=== PATIENT | female | born 1950 | race Caucasian/White ===

== ENCOUNTER 2018-10-04 09:23 | Day surgery (SDC) | payer MEDICARE, BC ==
[~2018-10-04] VITALS: Ht 167.6 cm; Wt 85.5 kg
[~2018-10-04 09:23] MED LIST: ASCO500 PO; ASPI81CH PO; CHOL10002 PO; Calicum 500+D1 EACH PO; Fish Oil300 MG PO; HYDR1TAB94; LISI20 PO; Multivitamin1 EAC1 PO; PRAV20 PO; ROSU5 PO
[2018-10-04] MEDS ORDERED: ROSU5 PO (10:22)
[2018-10-04] MEDS ORDERED: VITAMIN B12-FO1 EACH PO (10:25)
[2018-10-04] MEDS ORDERED: AMLO5 PO (10:26)
--- NOTE | 2018-10-04 17:00 | NUR ---
DISCHARGE PT REMAINED A&OX3 AND DENIED ANY PAIN DURING RECOVERY. PT AMBULATED TO RESTROOM AND DRESSED SELF INDEPENDANLTY. IV DC'D WITH CANULA IN TACT. R RADIAL SITE-TR BAND REMOVED-CLOTH DOT AND WHITE BOARD SECURE-CDI NO HEMATOMA NOTED. DISCHARGE PAPERWORK GONE OVER WITH PT AND SPOUSE. PT AND SPOUSE DENIED ANY QUESTIONS ON THE DISCHARGE EDUCATION GIVEN AT THIS TIME. PT WHEELED OUT BY THIS NURSE.
== END 2018-10-04 17:05 | disposition home or self-care (01) ==
LOC: MHTC 09:23
DX: I25.10 Atherosclerotic heart disease of native coronary artery without angina pectoris (principal); I71.4 Abdominal aortic aneurysm, without rupture; I44.2 Atrioventricular block, complete; I10 Essential (primary) hypertension; E78.5 Hyperlipidemia, unspecified; E66.9 Obesity, unspecified; Z79.899 Other long term (current) drug therapy; Z79.82 Long term (current) use of aspirin; Z87.891 Personal history of nicotine dependence; Z88.8 Allergy status to other drugs, medicaments and biological substances
CPT/HCPCS: 93454; 99152; 99153; C1769; C1894; J1644; J2250; J3010; J7030; Q9967

== ENCOUNTER 2019-10-28 09:14 | Day surgery (SDC) | payer MEDICARE, BC ==
[~2019-10-28] VITALS: Ht 172.7 cm; Wt 85.9 kg
[~2019-10-28 09:14] MED LIST changes: +AMLO5 PO; +VITAMIN B12-FO1 EACH PO
--- NOTE | 2019-10-28 10:02 | NUR ---
History, Chart, Medications and Allergies reviewed before start of procedure. Patient States Post-Procedure ride home has been arranged. Patient states colon prep results clear.
--- NOTE | 2019-10-28 10:13 | NUR ---
10/28/19 1013 Jaxson Bosch PATIENT DETERMINED TO BE ASA APPROPRIATE FOR PROPOFOL SEDATION PRIOR TO START OF PROCEDURE BY 3-LEAD EKG REVIEWED WITH PHYSICIAN PRIOR TO START OF PROCEDURE.Patient to ENDO 1History, Chart, Medications and Allergies reviewed before start of procedure.MONITOR INTACT WITH CONTINUOUS PULSE OXIMETRY AND INTERMITTENT BP.O2 VIA N/C INTACT THROUGHOUT SEDATION/PROCEDURE.
--- NOTE | 2019-10-28 10:59 | NUR ---
Discharge instructions reviewed with patient. Patient verbalizes understanding. Copy given to patient to take home. Discharged via wheelchair to private car for ride home.
== END 2019-10-28 11:00 | disposition home or self-care (01) ==
LOC: ORSCMMR 09:14 → ORD 10:00 → ORSCMMR 10:00
PROVIDERS: Internal Medicine Gastroenterology
PROC: 0DBN8ZX Excision of Sigmoid Colon, Via Natural or Artificial Opening Endoscopic, Diagnostic (ICD-10-PCS; principal; 2019-10-28 10:00)
DX: Z12.11 Encounter for screening for malignant neoplasm of colon (principal); Z86.010 Personal history of colon polyps; D12.5 Benign neoplasm of sigmoid colon; K63.5 Polyp of colon; K57.30 Diverticulosis of large intestine without perforation or abscess without bleeding; I10 Essential (primary) hypertension; E78.00 Pure hypercholesterolemia, unspecified; Z95.0 Presence of cardiac pacemaker; Z79.899 Other long term (current) drug therapy
CPT/HCPCS: 88305; J2704; J7120

== ENCOUNTER → 2020-11-15 | Outpatient (CLI) | payer MEDICARE, BC | END | disposition home or self-care (01) | LOC: LAB SHORT 14:45 → LAB 14:45 | DX: D48.5 Neoplasm of uncertain behavior of skin (principal); D22.61 Melanocytic nevi of right upper limb, including shoulder; D22.5 Melanocytic nevi of trunk | CPT/HCPCS: 88305 ==

== ENCOUNTER → 2024-05-06 | Outpatient (CLI) | payer MEDICARE, BC ==
[2024-05-06 14:08] LABS: Bun/Creatinine Ratio 23.3 (12.0-20.0); Calcium, Blood 9.7 mg/dL (8.5-10.1); Creatinine, Blood 0.69 mg/dL (0.40-1.00); Potassium, Blood 4.2 mmol/L (3.5-5.5)
== END | disposition home or self-care (01) ==
LOC: LAB 08:25 → LAB SHORT 08:25
PROVIDERS: Physician Assistant
DX: I12.9 Hypertensive chronic kidney disease with stage 1 through stage 4 chronic kidney disease, or unspecified chronic kidney disease (principal); N18.9 Chronic kidney disease, unspecified
CPT/HCPCS: 80048